=== PATIENT | female | born 1945 | race Caucasian/White ===

== ENCOUNTER 2016-08-10 16:37 | Inpatient (IN) ==
--- NOTE | 2016-08-10 18:37 | XRay Report ---
CLINICAL INFORMATION: Fall. Dyspnea. TECHNIQUE: Upright PA and lateral chest x-ray COMPARISON: Previous chest CT scan dated 12/10/[address] scan dated 08/06/2016 FINDINGS: Right-sided Port-A-Cath with its tip in the superior vena cava. Diffuse interstitial abnormality with prominent interstitial markings bilaterally. No parenchymal consolidation. No discrete mass. Heart size is mildly enlarged. Ivana and mediastinum are within normal limits. No pleural fluid. IMPRESSION: 1. Diffuse interstitial abnormality, probably chronic 2. No acute abnormality Interpreted and Authenticated by: Anant Dexter 08/10/16
[2016-08-10 19:07] LABS: ALT/SGPT 24 U/l (0-40); Albumin 3.5 gm/dL (3.2-5.2); Albumin/Globulin Ratio 0.9 (1.0-2.3); Alkaline Phosphatase 123 U/L (39-117); Blood Urea Nitrogen 39 mg/dl (8-23); Magnesium 2.1 mg/dL (1.6-2.5); proBNP 720.4 pg/ml (0-125)
[2016-08-10 19:23] LABS: Basophils # (Auto) 0 K/mcL (0.0-0.3); Basophils % (Auto) 0.1 % (0.0-2.0); Eosinophils # (Auto) 0.1 K/mcL (0.0-0.7); Eosinophils % (Auto) 0.7 % (0.0-7.0); Granulocytes % (Auto) 71.7 % (38.0-78.0); Lymphocytes # (Auto) 2.1 K/mcL (1.5-4.8); Lymphocytes % (Auto) 11.6 % (15.5-49.0); Mean Cell Volume 100.4 fL (80.0-100.0); Mean Corpuscular HGB Conc 32.8 g/dL (31.0-36.0); Mean Corpuscular Hemoglobin 32.9 pg (26.0-34.0); Monocytes # (Auto) 2.9 K/mcL (0.1-0.9); Monocytes % (Auto) 15.9 % (1.0-12.0); Platelet Count 191 K/mcL (140-440); RBC 3.75 M/mcL (4.00-5.20); Red Cell Distribution Width 15.6 % (11.5-14.5)
[2016-08-10] MEDS ORDERED: 0.9 % SODIUM CHLORIDE 1,000 ML IV ONE (19:55)
[2016-08-10] MEDS ORDERED: LEVOFLOXACIN 250 MG TABLET PO ONE (19:55)
[2016-08-10] MEDS ORDERED: LEVOFLOXACIN 500 MG TABLET ONE (20:07)
[2016-08-10] MEDS ORDERED: ONDANSETRON 4 MG/2 ML VIAL IV PRN ×2 (20:57→21:34)
[2016-08-10] MEDS ORDERED: NALOXONE HCL 0.4 MG/ML VIAL IV PRN ×2 (20:57→21:34)
[2016-08-10] MEDS ORDERED: HYDROcodone/APAP 5/325MG TABLET PO PRN ×2 (20:57→21:34)
[2016-08-10] MEDS ORDERED: 0.9 % SODIUM CHLORIDE 1,000 ML IV SCH (21:00)
--- NOTE | 2016-08-10 21:07 | Emergency Department Note ---
SOB HPI - General Chief Complaint: Shortness of Breath/Dyspnea Stated Complaint: Shortness of breath - tachycardia Time Seen by Provider: 08/10/16 17:35 Source: patient Mode of arrival: ambulatory Limitations: no limitations - History of Present Illness 71-year-old female patient of Dr. Olmedo's that was at [facility] for flushing her Port-A-Cath was sent over for tachycardia to the 120s. She has some dyspnea on exertion for the last 3-4 days along with some fatigue and pedal edema. She takes diuretics for the pedal edema and this does seem to be coming and going. No orthopnea palpitations or paroxysmal nocturnal dyspnea. She did have a fever up to 100F at home. Denies pain but she is hungry currently She has chronic kidney disease with a baseline creatinine about 1.9 currently on prednisone from Dr. Olmedo for this- baseline GFR 25. She is still making urine well without dysuria. Does endorse that she's been not drinking as much lately Her Hodgkin's lymphoma is in remission; also has non-Hodgkin's lymphoma though which is not in remission. She is status post stem cell transplant in 2012 - Related Data Home Medications Medication Instructions Recorded Confirmed Famotidine [Pepcid AC] 20 mg PO DAILY 08/10/16 08/10/16 Levothyroxine [Synthroid] 100 mcg PO DAILY 08/10/16 08/10/16 Premarin Unknown Strength 08/10/16 predniSONE [Prednisone] 5 mg PO DAILY 08/10/16 08/10/16 Allergies Allergy/AdvReac Type Severity Reaction Status Date / Time dapsone Allergy Unknown Other Verified 08/10/16 16:43 bleomycin AdvReac Unknown Rash Verified 08/10/16 16:43 methotrexate AdvReac Unknown Rash Verified 08/10/16 16:43 Penicillins AdvReac Unknown Rash Verified 08/10/16 16:43 Sulfa (Sulfonamide AdvReac Unknown Rash Verified 08/10/16 16:43 Antibiotics) trimethoprim AdvReac Unknown Rash Verified 08/10/16 16:43 Review of Systems All systems ED: reviewed and negative except as stated. Past Medical History - Past Medical History Attestation: Yes: The following information was validated with the patient. Medical history: Reports: cancer (both non-Hodgkin's lymphoma and Hodgkin's lymphoma), renal disease (stage IV), thyroid disease Surgical history ED: Reports: other (bone marrow transplant) - Social History smoking status: Never smoker Physical Exam No acute distress. Resting comfortably able to answer questions appropriate. Normocephalic atraumatic. Conjunctiva clear sclerae anicteric. No nasal discharge or congestion. Oropharynx with dry buccal mucosa. Neck is supple without lymphadenopathy or thyromegaly. Heart is regular rate and rhythm no murmurs appreciated. Lungs are clear to auscultation bilaterally without wheezes rales rhonchi or respiratory distress. Port-A-Cath in place right upper chest. +2 radial pulse. Abdomen soft nontender nondistended. No peritoneal signs or guarding. Trace pedal edema bilaterally. Alert and oriented no dysarthria or ataxia. - General Limitations: no limitations Course Vital Signs Temperature 98.6 F 08/10/16 16:38 Pulse Rate 116 H 08/10/16 16:38 Blood Pressure 132/86 08/10/16 16:38 Pulse Oximetry (%) 98 08/10/16 16:38 Temperature 98.6 F 08/10/16 16:38 Pulse Rate 52 L 08/10/16 20:21 Respiratory Rate 18 08/10/16 20:21 Blood Pressure 139/79 08/10/16 20:16 Pulse Oximetry (%) 87 L 08/10/16 20:21 Shortness of Breath/Dyspnea - Lab Data Lab results reviewed: Yes I reviewed the patient's lab results. Result diagrams: 08/10/16 18:15 08/10/16 18:15 Lab Results 08/10/16 08/10/16 08/10/16 Range/Units 18:15 18:15 18:15 WBC 18.1 H (4.5-11.0) K/mcL RBC 3.75 L (4.00-5.20) M/mcL Hgb 12.4 (12.0-15.0) g/dL Hct 37.7 (36.0-48.0) % MCV 100.4 H (80.0-100.0) fL MCH 32.9 (26.0-34.0) pg MCHC 32.8 (31.0-36.0) g/dL RDW 15.6 H (11.5-14.5) % Plt Count 191 (140-440) K/mcL MPV 13.0 H (7.4-10.4) fL Gran % 71.7 (38.0-78.0) % Lymph % (Auto) 11.6 L (15.5-49.0) % [place] % (Auto) 15.9 H (1.0-12.0) % Eos % (Auto) 0.7 (0.0-7.0) % Baso % (Auto) 0.1 (0.0-2.0) % Gran # 12.9 H (1.8-8.0) K/mcL Lymph # 2.1 (1.5-4.8) K/mcL [place] # 2.9 H (0.1-0.9) K/mcL Eos # 0.1 (0.0-0.7) K/mcL Baso # 0 (0.0-0.3) K/mcL D-Dimer < 0.27 (0.00-0.40) ug/ml VBG Lactic Acid (0.5-2.2) mmol/L Sodium 136 (133-145) mmol/L Potassium 3.8 (3.3-5.1) mmol/L Chloride 103 (96-108) mmol/L Carbon Dioxide 20 L (22-30) mmol/L Anion Gap 13.0 (8-16) BUN 39 H (8-23) mg/dl Creatinine 2.6 H (0.6-1.1) mg/dl GFR Calculation 18 Glucose 104 (70-105) mg/dL Calcium 9.6 (8.6-10.4) mg/dl Magnesium 2.1 (1.6-2.5) mg/dL Total Bilirubin 0.3 (0.0-1.0) mg/dL AST 25 (0-37) U/l ALT 24 (0-40) U/l Alkaline Phosphatase 123 H (39-117) U/L Troponin T (0-0.03) ng/ml NT-Pro-B Natriuret Pep 720.4 H (0-125) pg/ml Total Protein 7.3 (5.9-8.4) gm/dL Albumin 3.5 (3.2-5.2) gm/dL Globulin 3.8 H (2.2-3.7) gm/dL Albumin/Globulin Ratio 0.9 L (1.0-2.3) 05/15/17 05/15/17 Range/Units 18:15 18:15 WBC (4.5-11.0) K/mcL RBC (4.00-5.20) M/mcL Hgb (12.0-15.0) g/dL Hct (36.0-48.0) % MCV (80.0-100.0) fL MCH (26.0-34.0) pg MCHC (31.0-36.0) g/dL RDW (11.5-14.5) % Plt Count (140-440) K/mcL MPV (7.4-10.4) fL Gran % (38.0-78.0) % Lymph % (Auto) (15.5-49.0) % [place] % (Auto) (1.0-12.0) % Eos % (Auto) (0.0-7.0) % Baso % (Auto) (0.0-2.0) % Gran # (1.8-8.0) K/mcL Lymph # (1.5-4.8) K/mcL [place] # (0.1-0.9) K/mcL Eos # (0.0-0.7) K/mcL Baso # (0.0-0.3) K/mcL D-Dimer (0.00-0.40) ug/ml VBG Lactic Acid 0.9 (0.5-2.2) mmol/L Sodium (133-145) mmol/L Potassium (3.3-5.1) mmol/L Chloride (96-108) mmol/L Carbon Dioxide (22-30) mmol/L Anion Gap (8-16) BUN (8-23) mg/dl Creatinine (0.6-1.1) mg/dl GFR Calculation Glucose (70-105) mg/dL Calcium (8.6-10.4) mg/dl Magnesium (1.6-2.5) mg/dL Total Bilirubin (0.0-1.0) mg/dL AST (0-37) U/l ALT (0-40) U/l Alkaline Phosphatase (39-117) U/L Troponin T < 0.01 (0-0.03) ng/ml NT-Pro-B Natriuret Pep (0-125) pg/ml Total Protein (5.9-8.4) gm/dL Albumin (3.2-5.2) gm/dL Globulin (2.2-3.7) gm/dL Albumin/Globulin Ratio (1.0-2.3) evidence of UTI with small leukocytes, moderate blood and significant gravity 1.025 on urinalysis [id number] dipstick - Radiology Data Radiology results reviewed: Yes I reviewed the patient's radiology results. Chest x-ray shows likely chronic fibrosis but no acute findings. Port-A-Cath appears to be in good position - EKG Data EKG attestation: Yes I reviewed and interpreted this EKG. EKG results narrative: EKG shows a rate of 105. Low voltage and 2, 3 aVF otherwise normal EKG shows normal: Reports: sinus rhythm Disposition Clinical Impression: Dehydration [id number] kidney injury Qualifiers: Acute renal failure type: unspecified Chronic kidney disease stage: stage 4 ( severe) Qualified Code(s): N17.9 - Acute kidney failure, unspecified; N18.4 - Chronic kidney disease, stage 4 (severe) UTI (urinary tract infection) Qualifiers: Urinary tract infection type: acute cystitis Hematuria presence: with hematuria Qualified Code(s): N30.01 - Acute cystitis with hematuria Non Hodgkin's lymphoma Qualifiers: Non-Hodgkin lymphoma type: unspecified type Lymphoma site: unspecified region Qualified Code(s): C85.90 - Non-Hodgkin lymphoma, unspecified, unspecified site Summary: Initially worked patient up with laboratory chest x-ray urinalysis and EKG. Found to be dehydrated with a UTI and acute on chronic kidney injury. Unclear cardiac status with elevated BNP but normal troponin. D-dimer was likewise normal. I don't have comparison labs to make an evaluation about possible CHF but she does not appear to be in CHF at this time. Her story about pedal edema on diuretics is concerning for possible CHF- as is her risk factors for chemotherapy induced cardiomyopathy having been treated for lymphoma. Due to this I only gave her 1 L of normal saline and 1 dose of Levaquin 250mg We called Dr. Olmedo to discuss the patient- he did not want the patient to come to [place] and felt it was appropriate to admit to the hospitalist. I discussed the patient with Dr. Scott the hospitalist who agreed to accept the patient to telemetry bed. Transition orders are written- we will continue gentle IV fluids in light of above, monitor for continued need of antibiotics. Disposition: Xfer As Inpt ([facility] [place]) Condition: Fair Referrals: Andrey Wilcox MD [Primary Care Provider] - Fabien Olmedo MD [Physician] - Jason Villavicencio MD [Physician] -
[2016-08-10] MEDS ORDERED: ACETAMINOPHEN 325 MG TABLET PO PRN (21:34)
[2016-08-10] MEDS ORDERED: traZODone HCL 50 MG TABLET PO PRN (21:34)
[2016-08-10] MEDS ORDERED: ACETAMINOPHEN 1,000 MG/100 ML BOTTLE IV PRN (21:34)
[2016-08-10] MEDS ORDERED: PIPERACILLIN SODIUM/TAZOBACTAM 3.375 GM in DEXTROSE 5% IN WATER 50 ML IV SCH (21:34)
[2016-08-10] MEDS ORDERED: MAGNESIUM SULFATE 2 GM/50 ML BAG IV PRN (21:34)
[2016-08-10] MEDS ORDERED: POTASSIUM CHLORIDE 20 MEQ PACKET PO PRN (21:34)
[2016-08-10] MEDS ORDERED: VANCOMYCIN PER PHARMACY IV SCH (21:36)
[2016-08-10] MEDS: FAMOTIDINE 20 MG TABLET PO SCH (22:47)
[2016-08-10] MEDS: HEPARIN 5,000 UNIT/ML VIAL SQ SCH (22:47)
[2016-08-10] MEDS: DOCUSATE SODIUM 100 MG CAPSULE PO SCH (22:48)
[2016-08-10] MEDS: 0.9 % SODIUM CHLORIDE 1,000 ML IV SCH (22:48)
[2016-08-10] MEDS: 0.9 % SODIUM CHLORIDE 10 ML SYRINGE IV SCH (22:48)
[2016-08-10] MEDS: cefTRIAXone 2 GM in DEXTROSE 5% IN WATER 50 ML IV SCH (22:56)
[2016-08-10] MEDS ORDERED: VANCOMYCIN 500 MG VIAL ONE (23:48)
[2016-08-11] MEDS: VANCOMYCIN 1,000 MG in 0.9 % SODIUM CHLORIDE 250 ML IV SCH ×2 (00:18→15:51)
--- NOTE | 2016-08-11 01:17 | History and Physical Report ---
DATE OF ADMISSION: 08/10/2016 DATE OF ADMISSION: 08/10/2016 REASON FOR ADMISSION: Tachycardia, weakness. HISTORY OF CHIEF COMPLAINTS: The patient is a 71-year-old with known history of non-Hodgkin's lymphoma status post chemotherapy roughly 3 years ago. She is followed by Dr. Arthur at [facility]. She was getting her port flushed today at [facility] when she was found to have tachycardia around 120. She was directed to [facility] ER for further evaluation. Initial workup was essentially unremarkable except for tachycardia. The D-dimer was 0.37. Her creatinine was 2.6, which is higher than normal in light of acute kidney injury. Nephrology was consulted and recommended hospitalization for further evaluation. At the time of examination, the patient is alert and oriented. She is accompanied with her . She was able to provide answers to most of the questions. She denies recent changes in medications, sick contacts, diarrhea, dysuria, headache, or photophobia. She further denies chest pain, productive sputum, palpitation, weight loss or glandular swelling. She does endorse fatigue, lethargy over the last couple of days, but denies fever, drenching sweats. She also has underlying chronic kidney disease and has been managed by Dr. Olmedo. Her latest GFR was 25. She has been on prednisone over the last few months and currently being tapered down and has 2 more doses of 5 mg to go. PAST MEDICAL HISTORY: 1. Chronic kidney disease. 2. History of Hodgkin's and non-Hodgkin's lymphoma, managed by [facility]. 3. History of stem cell transplant 3 years ago with last chemo 3 years ago. 4. Hypothyroidism. 5. GERD. ALLERGIES KNOWN TO: 1. DAPSONE. 2. BLEOMYCIN. 3. PENICILLIN. 4. METHOTREXATE. 5. SULFA. 6. TRIMETHOPRIM. SOCIAL HISTORY: The patient lives with her in [place]. She is a FULL CODE STATUS. Denies smoking or alcoholism, substance use. Sees primary care physician, Andrey Wilcox MD. FAMILY HISTORY: None relevant to presenting symptom. PHYSICAL EXAMINATION: GENERAL: The patient is alert and oriented. BMI 25.3. Height 5 feet 3 inches. VITAL SIGNS: Blood pressure 132/86, respiratory rate 20, temperature 98.6, pulse 116, sats 98 percent on room air. HEENT: Pupils symmetric. Oral cavity is dry. No ear or nose discharge. Head is normocephalic and atraumatic. NECK: No lymphadenopathy. CHEST: S1, S2 regular rhythm. ESM grade 1. Diminished breath sounds at bases. ABDOMEN: Soft. LOWER EXTREMITIES: No cyanosis or clubbing. No joint swelling. SKIN: No suspicious lesions. PSYCHIATRIC: Alert and cooperative. No anxiety. NEURO: Nonfocal. LABS AND IMAGING: White count 18,000, hemoglobin 12.3, platelets 191, D-dimer less than 1.7, lactic acid 0.9, sodium 132, potassium 3.8, creatinine 2.6, BUN 39. Troponin negative. BNP 720. X-ray chest: Diffuse interstitial abnormality. EKG: Sinus tachycardia. ASSESSMENT AND PLAN: A 71-year-old with a history of Hodgkin's lymphoma admitted with weakness, leukocytosis and tachycardia. 1. Tachycardia with leukocytosis: High-risk blood-borne infection given the immunocompromised state, underlying renal failure and steroid use. Connelly cultures along with broad antibiotic coverage and rapid de-escalation based on results. Await procalcitonin. 2. Acute kidney injury: Nephrology consulted. Likely secondary to sepsis-mediated end-organ dysfunction. Continue crystalloids and monitor renal function. 3. Prior medical issues: Hypothyroidism, continue thyroxine. 4. History of peptic ulcer disease: Continue Pepcid. PLAN FOR TODAY: 1. Admit as inpatient in light of renal failure, likely infectious etiology with leukocytosis of 18,000. 2. Nephrology consult. 3. Connelly cultures. AA:percy Job ID: [id number] Doc ID: [id number] Jason Wilcox MD [facility]
[2016-08-11] MEDS: 0.9 % SODIUM CHLORIDE 10 ML SYRINGE IV SCH ×3 (05:06→21:42)
[2016-08-11] MEDS: 0.9 % SODIUM CHLORIDE 1,000 ML IV SCH ×3 (05:06→11:02)
[2016-08-11 07:39] LABS: ALT/SGPT 19 U/l (0-40); Albumin 2.7 gm/dL (3.2-5.2); Albumin/Globulin Ratio 0.8 (1.0-2.3); Alkaline Phosphatase 93 U/L (39-117); Bilirubin,Direct < 0.2 mg/dL (0.0-0.3); Blood Urea Nitrogen 29 mg/dl (8-23); Gamma Glutamyl Transpeptidase 164 U/L (5-36); Magnesium 1.8 mg/dL (1.6-2.5); Uric Acid 4.5 mg/dL (2.5-8.0)
--- NOTE | 2016-08-11 08:26 | Ultrasound Report ---
CLINICAL INFORMATION: Renal failure. Possible obstructive uropathy. TECHNIQUE: Grayscale and color flow spectral imaging COMPARISON: None. FINDINGS: Right kidney measures 9.1 x 4.4 x 5.5 cm. Left kidney measures 10.1 x 4.4 x 4.3 cm. No solid or cystic mass. Normal sinus and cortical echoes bilaterally. No calculi. No hydronephrosis. Prevoid bladder volume measures 142 mL. Patient was unable to void. No bladder calculus or mass. IMPRESSION: Negative renal ultrasound. Interpreted and Authenticated by: Anant Dexter 08/11/16
[2016-08-11 09:13] LABS: Band Neutrophils % 1 % (0-10); Eosinophils % (Manual) 2 % (0-7); Lymphocytes % 16 % (15-49); Macrocytosis 1+ (NONE SEEN); Monocytes % (Manual) 18 % (1-12); Myelocytes % 2 % (0-0); Platelet Estimate NORMAL (NORMAL); RBC Morphology ABNORM (NORMAL); Segmented Neutrophils % 59 % (38-78)
[2016-08-11 09:15] LABS: Mean Corpuscular HGB Conc 32.3 g/dL (31.0-36.0); Mean Corpuscular Hemoglobin 32.3 pg (26.0-34.0); Platelet Count 191 K/mcL (140-440); RBC 2.93 M/mcL (4.00-5.20); Red Cell Distribution Width 15.2 % (11.5-14.5)
[2016-08-11] MEDS: predniSONE 5 MG TABLET PO SCH (09:26)
[2016-08-11] MEDS: HEPARIN 5,000 UNIT/ML VIAL SQ SCH ×2 (09:26→20:06)
[2016-08-11] MEDS: DOCUSATE SODIUM 100 MG CAPSULE PO SCH ×2 (09:27→20:06)
[2016-08-11] MEDS: LEVOTHYROXINE 100 MCG TABLET PO SCH (10:16)
[2016-08-11] MEDS: cefTRIAXone 2 GM in DEXTROSE 5% IN WATER 50 ML IV SCH (10:16)
[2016-08-11] MEDS: CEFEPIME 1 GM in DEXTROSE 5% IN WATER 50 ML IV SCH (17:22)
[2016-08-11] MEDS: FAMOTIDINE 20 MG TABLET PO SCH (20:06)
[2016-08-11] MEDS ORDERED: SENNOSIDES/DOCUSATE SODIUM 1 TAB TABLET PO SCH (21:00)
[2016-08-11] MEDS ORDERED: FAMOTIDINE 20 MG TABLET PO SCH (21:00)
[2016-08-11] MEDS ORDERED: LEVOTHYROXINE 100 MCG TABLET PO SCH ×2 (21:00)
[2016-08-12] MEDS: 0.9 % SODIUM CHLORIDE 10 ML SYRINGE IV SCH ×3 (04:59→21:36)
[2016-08-12 06:06] LABS: ALT/SGPT 22 U/l (0-40); Albumin 3.1 gm/dL (3.2-5.2); Albumin/Globulin Ratio 0.9 (1.0-2.3); Alkaline Phosphatase 108 U/L (39-117); Bilirubin,Direct < 0.2 mg/dL (0.0-0.3); Blood Urea Nitrogen 24 mg/dl (8-23); Gamma Glutamyl Transpeptidase 188 U/L (5-36); Magnesium 1.8 mg/dL (1.6-2.5); Uric Acid 4.1 mg/dL (2.5-8.0)
--- NOTE | 2016-08-12 07:03 | XRay Report ---
CLINICAL INFORMATION: Interstitial lung disease TECHNIQUE: Upright AP portable chest x-ray COMPARISON: 08/10/2016 FINDINGS: No change in right-sided Port-A-Cath Interstitial markings remain prominent bilaterally. No significant interval change. No new focal pulmonary parenchymal infiltrate or mass. No evidence for congestive heart failure IMPRESSION: No interval change since 08/10/2016 Interpreted and Authenticated by: Anant Dexter 08/12/16
--- NOTE | 2016-08-12 07:17 | Echocardiogram Report ---
ECHOCARDIOGRAM: 2-D and M-mode echocardiography with cardiac Doppler and color flow imaging were performed with a CS [employer] Aplio MX. Indication is ''rule out blood clots.'' A diagnostic M-mode tracing of the LV could not be obtained. Overall size of the RA, RV, LV, and aortic root appeared normal as did LV wall thickness and systolic performance. Estimated ejection fraction is 60-65%. The LA appeared borderline enlarged. The aortic valve appeared trileaflet and normal. There was no evidence for aortic stenosis or aortic regurgitation by Doppler interrogation. The mitral and tricuspid valves appeared unremarkable. Doppler interrogation of LV inflow disclosed prolonged early diastolic deceleration time and ''a'' wave dominance indicating delayed LV relaxation. No more than trivial mitral regurgitation was noted. Pulmonary venous interrogation disclosed normal ''s'' wave dominance. The pulmonic valve was not visualized. Pulmonary artery acceleration time appeared normal. There was no evidence for pulmonic stenosis or pulmonic regurgitation. There was no evidence for tricuspid regurgitation. No intracardiac shunting was appreciated. There was no evidence of pericardial effusion. The IVC was of normal diameter and showed normal respiratory variation. Sinus rhythm, rate 92, was present. CONCLUSION:Borderline LA enlargement. No other abnormalities noted. (See accompanying M-mode and Doppler reports for quantitation.) ECHOCARDIOGRAPHY M-MODE CALCULATIONS: HT: 63'' WT: 143 BSA: 1.68 m2 NORMALS AORTA: AORTIC ROOT 3.5 2.0-3.7 cm LEFT ATRIUM 3.8 1.9-4.0 cm MITRAL VALVE: EXCURSION 1.8 1.9-2.7 cm EPSS 0.8 <0.5 cm LT VENTRICLE: LVID (ED) -- 3.5-5.7 cm LVID (ES) -- SEPTAL THICKNESS -- 0.6-1.1 cm SEPTAL EXCURSION -- 0.3-0.8 cm LVPW THICKNESS -- 0.6-1.1 cm LVPW EXCURSION -- 0.9-1.4 cm MINOR AXIS FS -- 25%-40% RT VENTRICLE: RVID (ED) -- 0.9-2.6 cm(up to 3cm if LLD) QUALITATIVE DOPPLER FLOW STUDIES MITRAL VALVE MR, probably trivial AORTIC VALVE -- TRICUSPID VALVE -- PULMONIC VALVE -- QUANTITATIVE DOPPLER FLOW STUDIES SAMPLE SITES VELOCITIES PEAK PRESSURE VALVE AREA and/or VALVE WINDOW (PEAK,M/SEC) DROP (GRADIENT) PRESSURE HALF-TIME MV (Diastole) 0.8 1.2 -- -- MV (Systole) -- -- -- AO (Diastole) -- -- -- AO (Systole) 1.5 -- -- TV (Systole) -- -- -- PV (Systole) 0.8 -- -- PV (Diastole) -- LWG:frida Job ID: [id number] Doc ID: [id number] Ruslan Gonzalez MD
[2016-08-12] MEDS: CEFEPIME 1 GM in DEXTROSE 5% IN WATER 50 ML IV SCH ×2 (07:29→21:33)
[2016-08-12] MEDS: LEVOTHYROXINE 100 MCG TABLET PO SCH (07:30)
[2016-08-12 07:49] LABS: Mean Corpuscular HGB Conc 33.1 g/dL (31.0-36.0); Mean Corpuscular Hemoglobin 33.4 pg (26.0-34.0); Platelet Count 195 K/mcL (140-440); RBC 3.36 M/mcL (4.00-5.20); Red Cell Distribution Width 15.2 % (11.5-14.5)
[2016-08-12 07:50] LABS: Band Neutrophils % 1 % (0-10); Eosinophils % (Manual) 3 % (0-7); Lymphocytes % 18 % (15-49); Macrocytosis 1+ (NONE SEEN); Monocytes % (Manual) 12 % (1-12); Myelocytes % 1 % (0-0); Platelet Estimate NORMAL (NORMAL); RBC Morphology ABNORM (NORMAL); Segmented Neutrophils % 65 % (38-78)
[2016-08-12] MEDS: DOCUSATE SODIUM 100 MG CAPSULE PO SCH ×2 (08:18→21:34)
[2016-08-12] MEDS: predniSONE 5 MG TABLET PO SCH (08:18)
[2016-08-12] MEDS: HEPARIN 5,000 UNIT/ML VIAL SQ SCH ×2 (08:21→21:34)
[2016-08-12] MEDS ORDERED: LEVOFLOXACIN 750 MG/150 ML BAG IV SCH (09:00)
--- NOTE | 2016-08-12 10:19 | Internal Med Progress Note ---
Medical - PN: Subj Patient information: Note initiated : 08/11/16 at 11:14 am Patient: Suyapa Pang 71 y/o F admitted on 08/10/16 for SOB, Tachycardia, Weakness, Leukocytosis. Chief Complaint: Interval history: 08/10- 71-year-old with history of NHL lymphoma and chronic kidney disease admitted with acute renal failure/tachycardia of unclear etiology. Extensive cultures taken broad antibiotic started in light of gram-negative lan in urine. Also cultures drawn from Port-A-Cath to rule out portal infection. Echocardiogram o evaluate right heart pressures as patient not amenable to CT angiogram in light of renal failure. Creatinine 2.5 baseline creatinine 2. white count 18,000 08/11- Patient doing well however feels fatigued. No overnight fever. Blood cultures negative so far. Urine cultures gram-negative lan. White count down from 18,000-17.4. continue cefepime and vancomycin and de-escalate based on culture sensitivities. Persistent tachycardia however improved to around 100. \ - Constitutional Vitals: Vital Signs Temp Pulse Resp BP Pulse Ox 98.2 F 103 H 18 139/73 90 08/12/16 06:57 08/12/16 06:57 08/12/16 06:57 08/12/16 06:57 08/12/16 07:38 Period Temp Pulse Resp BP Sys/Lopez Pulse Ox Last 24 Hr 97.4 F-99.4 F 86-105 16-20 110-153/53-73 89-96 Intake and Output 08/11/16 08/12/16 08/12/16 21:59 05:59 13:59 Intake Total 2019 50 / 50 Output Total 200 / 200 1650 / 1650 400 / 400 Balance 1820 / 1820 -1650 / -1650 -350 / -350 Weight 149 lb 8 oz Intake & Output: Intake & Output 08/11/16 08/12/16 08/12/16 21:59 05:59 13:59 Intake Total 2019 50 / 50 Output Total 200 / 200 1650 / 1650 400 / 400 Balance 1820 / 1820 -1650 / -1650 -350 / -350 Weight 149 lb 8 oz Intake: IV 1300 / 1300 50 / 50 Sodium Chloride 0.9% 1, 1000 / 1000 000 ml @ 150 mls/hr IV . Q6H40M [facility] Rx#:[id number] Maxipime 1 gm In Dextrose 50 / 50 50 / 50 5% in Water 50 ml @ 100 mls/hr IV Q12H [facility] Rx#: [id number] Vancomycin 1,000 mg In 250 / 250 Sodium Chloride 0.9% 250 ml @ 250 mls/hr IV Q24H [facility] Rx#:[id number] Oral 720 / 720 Output: Void Amount 200 / 200 1650 / 1650 400 / 400 Other: Meal Dinner Percent of Meal Consumed 100% Feeding Ability Assist with Tray Set Up # Bowel Movements 0 General appearance: cooperative, no acute distress Exam: alert oriented nonlabored breathing No anxiety Nondistended abdomen No rash or joint swelling Medical - PN: Obj Da - Labs CBC & Chem 7: 08/12/16 04:00 08/12/16 04:00 Labs: Abnormal Lab Results 08/12/16 08/12/16 08/11/16 04:00 04:00 08:12 WBC 19.1 H RBC 3.36 L Hgb 11.2 L Hct 33.9 L MCV 101.0 H RDW 15.2 H MPV 13.4 H Monocytes % (Manual) Myelocytes % 1 H RBC Morphology Abnorm A Macrocytosis 1+ A ESR 64 H Chloride 112 H Carbon Dioxide 17 L BUN 24 H Creatinine 1.7 H Phosphorus 2.4 L GGT 188 H Albumin 3.1 L Albumin/Globulin Ratio 0.9 L Triglycerides 169 H 08/11/16 08/11/16 05:44 05:44 WBC 17.7 H RBC 2.93 L Hgb 9.5 L Hct 29.3 L MCV RDW 15.2 H MPV 13.8 H Monocytes % (Manual) 18 H Myelocytes % 2 H RBC Morphology Abnorm A Macrocytosis 1+ A ESR Chloride 109 H Carbon Dioxide 16 L BUN 29 H Creatinine 2.0 H Phosphorus GGT 164 H Albumin 2.7 L Albumin/Globulin Ratio 0.8 L Triglycerides 151 H Meds: Medications Acetaminophen (Tylenol) 650 mg PO Q4-6HP PRN PRN Reason: PAIN/FEVER > 101 Last Admin: 08/11/16 11:05 Dose: 650 mg Acetaminophen/Hydrocodone Bitart ([place] 5/325mg) 1 tab PO Q4HP PRN PRN Reason: Pain Docusate Sodium (Colace) 100 mg PO BID [facility] Last Admin: 08/12/16 08:18 Dose: Not Given Famotidine (Pepcid) 20 mg PO HS [facility] Last Admin: 08/11/16 20:06 Dose: 20 mg Heparin Sodium (Porcine) (Heparin) 5,000 unit SQ Q12 [facility] Last Admin: 08/12/16 08:21 Dose: 5,000 unit Magnesium Sulfate (Magnesium Sulfate) 2 gm in 50 mls @ 50 mls/hr IV UD PRN PRN Reason: MG = or < 1.7 Acetaminophen (Ofirmev) 1,000 mg in 100 mls @ 200 mls/hr IV Q6HP PRN PRN Reason: PAIN/FEVER > 101 Vancomycin HCl 1,000 mg/ (Sodium Chloride) 250 mls @ 250 mls/hr IV Q24H [facility] Last Infusion: 08/11/16 17:10 Dose: Infused Cefepime HCl 1 gm/ Dextrose 50 mls @ 100 mls/hr IV Q12H [facility] Last Infusion: 08/12/16 08:00 Dose: Infused [facility]othy[facility]ine [facility]) [facility] Last Admin: 08/12/16 07:30 Dose: 100 mcg Naloxone HCl (Narcan) 0.1 mg IV Q2MIN PRN PRN Reason: Opiate Reversal Ondansetron HCl (Zofran) 4 mg IV Q4HP PRN PRN Reason: Nausea And Vomiting Potassium Chloride (Klor-Con) 40 meq PO DAILYP PRN PRN Reason: K+ < 3.5 Last Admin: 08/11/16 17:19 Dose: 40 meq Prednisone (Prednisone) 5 mg PO QAC [facility] Last Admin: 08/12/16 08:18 Dose: 5 mg Senna/Docusate Sodium (Senna Plus Tablet) 1 tab PO [facility] Last Admin: 08/11/16 20:06 Dose: Not Given Sodium Chloride (Saline Flush) 10 ml IV Q8 [facility] Last Admin: 08/12/16 04:59 Dose: Not Given Trazodone HCl (Desyrel) 50 mg PO HSP PRN PRN Reason: Insomnia Vancomycin HCl (Vancomycin Per Pharmacy) 1 order IV [facility] Medical - PN: A/P - Time Spent With Patient Total time spent is greater than 50% in coordination of care (as documented) at patient's floor/unit and/or counseling patient: 25 - 35 minutes (1) Leukocytosis (leucocytosis) Status: Acute Assessment and plan: * Leukocytosis- 18,000. Down to 17.4. unclear etiology. pancultures pending. Urine culture GNR. On cefepime and vancomycin. Cultures drawn from Port-A- Cath rule out Infection. patient on steroids however to lower dose to cause major leukocytosis * Acute renal failure-creatinine improved. from 2.6-2 Likely secondary to volume depletion. Continue crystalloids. patient has been on prednisone as per service station console operator and has 2 doses left. * Tachycardia- echocardiogram to rule out elevated right heart pressure. Patient not amenable to CT angiogram in light of creatinine. continue telemetry monitoring. * hypothyroidism on thyroxine * DVT prophylaxis on heparin Plan * Continue cultures and antibiotics. And de-escalate based on results * Monitor renal function. Continue crystalloids * Await echo findings * Possible discharge in 44-48 hours if clinically improves Current Visit: Yes Medical - PN: Qual - Stroke Symptom Onset Unknown: No - VTE Deep Vein Thrombosis/Pulmonary Embolism Present on Admission: No
--- NOTE | 2016-08-12 10:28 | Internal Med Progress Note ---
Medical - PN: Subj Patient information: Note initiated : 08/12/16 at 10:22 am Service Date, if different from initiated Date: [] Patient: Suyapa Pang 71 y/o F admitted on 08/10/16 for SOB, Tachycardia, Weakness, Leukocytosis. Chief Complaint: [] Interval history: 08/10- 71-year-old with history of NHL lymphoma and chronic kidney disease admitted with acute renal failure/tachycardia of unclear etiology. Extensive cultures taken broad antibiotic started in light of gram-negative lan in urine. Also cultures drawn from Port-A-Cath to rule out portal infection. Echocardiogram o evaluate right heart pressures as patient not amenable to CT angiogram in light of renal failure. Creatinine 2.5 baseline creatinine 2. white count 18,000 08/11- Patient doing well however feels fatigued. No overnight fever. Blood cultures negative so far. Urine cultures gram-negative lan. White count down from 18,000-17.4. continue cefepime and vancomycin and de-escalate based on culture sensitivities. Persistent tachycardia however improved to around 100. 08/12-worsening white count and 19,000. Patient feels fatigued and lethargic but no overnight fever chills or unstable hemodynamics. Tachycardia at 110. CT abdomen noncontrast. Doppler lower extremity rule out DVT. However echo no evidence of right heart elevated pressures. EF 60%. no hypoxia or dyspnea. Afebrile. No obvious source of infection. - Constitutional Vitals: Vital Signs Temp Pulse Resp BP Pulse Ox 98.2 F 103 H 18 139/73 90 08/12/16 06:57 08/12/16 06:57 08/12/16 06:57 08/12/16 06:57 08/12/16 07:38 Period Temp Pulse Resp BP Sys/Lopez Pulse Ox Last 24 Hr 97.4 F-99.4 F 86-105 16-20 110-153/53-73 89-96 Intake and Output 08/11/16 08/12/16 08/12/16 21:59 05:59 13:59 Intake Total 2019 50 / 50 Output Total 200 / 200 1650 / 1650 400 / 400 Balance 1820 / 1820 -1650 / -1650 -350 / -350 Weight 149 lb 8 oz Intake & Output: Intake & Output 08/11/16 08/12/16 08/12/16 21:59 05:59 13:59 Intake Total 2019 50 / 50 Output Total 200 / 200 1650 / 1650 400 / 400 Balance 1820 / 1820 -1650 / -1650 -350 / -350 Weight 149 lb 8 oz Intake: IV 1300 / 1300 50 / 50 Sodium Chloride 0.9% 1, 1000 / 1000 000 ml @ 150 mls/hr IV . Q6H40M [facility] Rx#:[id number] Maxipime 1 gm In Dextrose 50 / 50 50 / 50 5% in Water 50 ml @ 100 mls/hr IV Q12H [facility] Rx#: [id number] Vancomycin 1,000 mg In 250 / 250 Sodium Chloride 0.9% 250 ml @ 250 mls/hr IV Q24H [facility] Rx#:[id number] Oral 720 / 720 Output: Void Amount 200 / 200 1650 / 1650 400 / 400 Other: Meal Dinner Percent of Meal Consumed 100% Feeding Ability Assist with Tray Set Up # Bowel Movements 0 General appearance: cooperative Exam: fatigue and lethargic no rash Nondistended abdomen Minimal abdominal discomfort Medical - PN: Obj Da - Labs CBC & Chem 7: 08/12/16 04:00 08/12/16 04:00 Labs: Abnormal Lab Results 08/12/16 08/12/16 08/11/16 04:00 04:00 08:12 WBC 19.1 H RBC 3.36 L Hgb 11.2 L Hct 33.9 L MCV 101.0 H RDW 15.2 H MPV 13.4 H Monocytes % (Manual) Myelocytes % 1 H RBC Morphology Abnorm A Macrocytosis 1+ A ESR 64 H Chloride 112 H Carbon Dioxide 17 L BUN 24 H Creatinine 1.7 H Phosphorus 2.4 L GGT 188 H Albumin 3.1 L Albumin/Globulin Ratio 0.9 L Triglycerides 169 H 08/11/16 08/11/16 05:44 05:44 WBC 17.7 H RBC 2.93 L Hgb 9.5 L Hct 29.3 L MCV RDW 15.2 H MPV 13.8 H Monocytes % (Manual) 18 H Myelocytes % 2 H RBC Morphology Abnorm A Macrocytosis 1+ A ESR Chloride 109 H Carbon Dioxide 16 L BUN 29 H Creatinine 2.0 H Phosphorus GGT 164 H Albumin 2.7 L Albumin/Globulin Ratio 0.8 L Triglycerides 151 H Meds: Medications Acetaminophen (Tylenol) 650 mg PO Q4-6HP PRN PRN Reason: PAIN/FEVER > 101 Last Admin: 08/11/16 11:05 Dose: 650 mg Acetaminophen/Hydrocodone Bitart (Cement 5/325mg) 1 tab PO Q4HP PRN PRN Reason: Pain Docusate Sodium (Colace) 100 mg PO BID [facility] Last Admin: 08/12/16 08:18 Dose: Not Given Famotidine (Pepcid) 20 mg PO [facility] Last Admin: 08/11/16 20:06 Dose: 20 mg Heparin Sodium (Porcine) (Heparin) 5,000 unit SQ Q12 [facility] Last Admin: 08/12/16 08:21 Dose: 5,000 unit Magnesium Sulfate (Magnesium Sulfate) 2 gm in 50 mls @ 50 mls/hr IV UD PRN PRN Reason: MG = or < 1.7 Acetaminophen (Ofirmev) 1,000 mg in 100 mls @ 200 mls/hr IV Q6HP PRN PRN Reason: PAIN/FEVER > 101 Vancomycin HCl 1,000 mg/ (Sodium Chloride) 250 mls @ 250 mls/hr IV Q24H [facility] Last Infusion: 08/11/16 17:10 Dose: Infused Cefepime HCl 1 gm/ Dextrose 50 mls @ 100 mls/hr IV Q12H [facility] Last Infusion: 08/12/16 08:00 Dose: Infused Levothyroxine [facility]throid) [facility] Last Admin: 08/12/16 07:30 Dose: 100 mcg Naloxone HCl (Narcan) 0.1 mg IV Q2MIN PRN PRN Reason: Opiate Reversal Ondansetron HCl (Zofran) 4 mg IV Q4HP PRN PRN Reason: Nausea And Vomiting Potassium Chloride (Klor-Con) 40 meq PO DAILYP PRN PRN Reason: K+ < 3.5 Last Admin: 08/11/16 17:19 Dose: 40 meq Prednisone (Pred[facility]one) [facility] Last Admin: 08/12/16 08:18 Dose: 5 mg Senna/Docusate Sodium (Senna Plus Tablet) 1 tab PO [facility] Last Admin: 08/11/16 20:06 Dose: Not Given Sodium Chloride (Saline Flush) 10 ml IV Q8 [facility] Last Admin: 08/12/16 04:59 Dose: Not Given Trazodone HCl (Desyrel) 50 mg PO [facility] PRN PRN Reason: Insomnia Vancomycin HCl (Vancomycin Per Pharmacy) 1 order IV [facility] [place] Medical - PN: A/P - Time Spent With Patient Total time spent is greater than 50% in coordination of care (as documented) at patient's floor/unit and/or counseling patient: 15 - 24 minutes (1) Leukocytosis (leucocytosis) Status: Acute Assessment and plan: * Leukocytosis- Worsening and 19,000 Urine culture pansensitive Escherichia coli. No other source identified so far. blood cultures from Port-A-Cath negative. Continue cefepime and vancomycin. * Acute renal failure-creatinine improved. from 2.6-1.7 on crystalloids. Likely secondary to volume depletion. * Tachycardia- echocardiogram to rule out elevated right heart pressure. Patient not amenable to CT angiogram in light of creatinine. continue telemetry monitoring. * hypothyroidism on thyroxine * abdominal discomfort/constipation-patient refusing laxatives * DVT prophylaxis on heparin Plan * Continue cultures and antibiotics. * CT abdomen Noncontrast in light of abdominal discomfort * Doppler lower extremity ultrasound to rule out DVT * DC steroids in 24 hour * Monitor renal function. Continue crystalloids * discharge on hold until leukocytosis improved Current Visit: Yes Medical - PN: Qual - Stroke Symptom Onset Unknown: No - VTE Deep Vein Thrombosis/Pulmonary Embolism Present on Admission: No
[2016-08-12 13:14] LABS: Appearance,Urine HAZY; Bacteria,Urine 0 /hpf (0); Bilirubin,Urine NEG (NEG); Color,Urine YELLOW; Glucose,Urine (UA) 50 mg/dL (NEG); Leukocyte Esterase,Urine NEG /uL (NEG); Mucus,Urine FEW /hpf (0); Nitrate,Urine NEG (NEG); Protein,Urine NEG (NEG); Specific Gravity,Urine 1.012 (1.000-1.035); Urine Amorphous Crystals FEW /hpf (0); Urine Blood 0.03 mg/dL (<0.03); Urine Hyaline Cast 2 /lpf (0-2); Urine RBC 0 /hpf (0-1); Urine Squamous Epithelial Cell 1 /hpf (0-4); Urine WBC 1 /hpf (0-4); Urobilinogen,Urine NEG (NEG)
--- NOTE | 2016-08-12 13:28 | Ultrasound Report ---
CLINICAL INFORMATION: Bilateral lower extremity pain and swelling TECHNIQUE: Grayscale and color flow spectral imaging COMPARISON: None. FINDINGS: Negative examination for deep venous thrombosis. Normal common femoral veins, superficial femoral veins, popliteal veins bilaterally. Calf veins are negative. Greater and lesser saphenous veins are negative IMPRESSION: Negative bilateral lower extremity deep venous ultrasound Interpreted and Authenticated by: Anant Dexter 08/12/16
[2016-08-12] MEDS ORDERED: HYDROcodone/APAP 5/325MG TABLET PO PRN (14:32)
[2016-08-12] MEDS ORDERED: MAGNESIUM SULFATE 2 GM/50 ML BAG IV PRN (14:32)
[2016-08-12] MEDS ORDERED: traZODone HCL 50 MG TABLET PO PRN (14:32)
[2016-08-12] MEDS ORDERED: VANCOMYCIN PER PHARMACY IV SCH (14:32)
[2016-08-12] MEDS ORDERED: ONDANSETRON 4 MG/2 ML VIAL IV PRN (14:32)
[2016-08-12] MEDS ORDERED: ACETAMINOPHEN 1,000 MG/100 ML BOTTLE IV PRN (14:32)
[2016-08-12] MEDS ORDERED: POTASSIUM CHLORIDE 20 MEQ PACKET PO PRN (14:32)
[2016-08-12] MEDS ORDERED: NALOXONE HCL 0.4 MG/ML VIAL IV PRN (14:32)
[2016-08-12] MEDS ORDERED: ACETAMINOPHEN 325 MG TABLET PO PRN (14:32)
--- NOTE | 2016-08-12 20:18 | Cat Scan Report ---
CLINICAL INFORMATION: Elevated white blood cell count. Possible abscess. Previous history of lymphoma. COMPARISON: PET/CT scan dated 08/06/2016 TECHNIQUE: Axial images were obtained through the abdomen and pelvis. Sagittally and coronally reformatted images. FINDINGS: Lung bases are suboptimally evaluated due to respiratory motion. No focal consolidation. There are very small effusions. Liver is negative to limits of noncontrast enhanced examination. No focal intrahepatic abnormality. There are calcified gallstones. No dilated bile ducts. There are several small round soft tissue abnormalities in the left upper quadrant which probably represents splenule. 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 Negative adrenal glands. Pancreas is negative. No pancreatic mass. No peripancreatic abnormality. Negative kidneys. No solid or cystic abnormality. No hydronephrosis. No diverticulitis. No significant diverticulosis. No free pelvic fluid. No intra-abdominal abscess. No pneumoperitoneum. No biliary or portal venous gas. There is a pessary within the vagina. This is in a vertical orientation. There is a supra umbilical abdominal wall hernia. Hernia defect measures 3.5 x 2.8 cm. This does not contain bowel. There is mesenteric fat. There are small para-aortic and left iliac chain retroperitoneal lymph nodes. Findings are unchanged since 08/06/2016. Some of these nodes are hypermetabolic consistent with recurrent or residual lymphoma.. IMPRESSION: 1. No intra-abdominal abscess. 2. Cholelithiasis. 3. Mild aortic retroperitoneal lymphadenopathy. No significant interval change since 08/06/2016 Interpreted and Authenticated by: Anant Dexter 08/12/16
[2016-08-12] MEDS ORDERED: SENNOSIDES/DOCUSATE SODIUM 1 TAB TABLET PO SCH (21:00)
[2016-08-12] MEDS ORDERED: FAMOTIDINE 20 MG TABLET PO SCH (21:00)
[2016-08-13] MEDS: 0.9 % SODIUM CHLORIDE 10 ML SYRINGE IV SCH ×2 (03:55→05:44)
[2016-08-13 06:18] LABS: Blood Urea Nitrogen 22 mg/dl (8-23); Uric Acid 4.3 mg/dL (2.5-8.0)
[2016-08-13 06:19] LABS: ALT/SGPT 18 U/l (0-40); Albumin/Globulin Ratio 0.8 (1.0-2.3); Alkaline Phosphatase 99 U/L (39-117); Bilirubin,Direct < 0.2 mg/dL (0.0-0.3); Gamma Glutamyl Transpeptidase 173 U/L (5-36); Magnesium 1.8 mg/dL (1.6-2.5)
[2016-08-13] MEDS ORDERED: LEVOTHYROXINE 100 MCG TABLET PO SCH (07:30)
[2016-08-13 07:39] LABS: Mean Cell Volume 101.2 fL (80.0-100.0); Mean Corpuscular HGB Conc 32.6 g/dL (31.0-36.0); Platelet Count 200 K/mcL (140-440); RBC 3.32 M/mcL (4.00-5.20); Red Cell Distribution Width 15.5 % (11.5-14.5)
[2016-08-13 07:41] LABS: Band Neutrophils % 1 % (0-10); Eosinophils % (Manual) 1 % (0-7); Lymphocytes % 19 % (15-49); Macrocytosis 1+ (NONE SEEN); Monocytes % (Manual) 20 % (1-12); Platelet Estimate NORMAL (NORMAL); RBC Morphology ABNORM (NORMAL); Segmented Neutrophils % 59 % (38-78)
[2016-08-13] MEDS: CEFEPIME 1 GM in DEXTROSE 5% IN WATER 50 ML IV SCH (09:30)
[2016-08-13] MEDS: HEPARIN 5,000 UNIT/ML VIAL SQ SCH (09:31)
[2016-08-13] MEDS: DOCUSATE SODIUM 100 MG CAPSULE PO SCH (09:36)
[2016-08-13] MEDS ORDERED: VANCOMYCIN 1,000 MG in 0.9 % SODIUM CHLORIDE 250 ML IV SCH (10:00)
--- NOTE | 2016-08-13 10:35 | Discharge Summary ---
Medical - DS: Prov Patient information: Note initiated : 08/13/16 at 10:27 am Service Date, if different from initiated Date: [] Patient: Suyapa Pang 71 y/o F admitted on 08/10/16 for SOB, Tachycardia, Weakness, Leukocytosis. Chief Complaint: [] Date of admission: 08/10/16 21:28 Discharge date: 08/13/16 Primary care physician: [f_Reg Prim Care Provider] Medical - DS: Meds - Discharge Medications Active and Home Medications: Home Medications Famotidine [Pepcid AC] 20 mg PO DAILY 08/10/16 [History Confirmed 08/12/16 Last Taken 08/09/16] Levothyroxine [Synthroid] 100 mcg PO DAILY 08/10/16 [History Confirmed 08/12/16 Last Taken 08/12/16] Estrogens, Conjugated [Premarin] 0.625 mg VG TUTH 08/12/16 [History Confirmed Last Taken 08/06/16] Medical - DS: Hosp Hospital course: DISCHARGE DIAGNOSIS * Leukocytosis- unchanged at 19,000. No evidence of infection including fever. unremarkable pro calcitonin. Negative renal ultrasound/abdominal CT/chest imaging/blood cultures, UA no evidence of pyuria, Escherichia coli on culture. DC antibiotics. Follow-up PCP in 3-5 days with repeat CBC. If persistent elevation patient will require marrow biopsy/oncology follow-up in light of giant platelets noticed on manual differential. * Acute renal failure-creatinine improved. from 2.6-1.8. now at baseline * Tachycardia secondary to volume depletion-resolved with crystalloids . Negative Doppler lower extremity ultrasound. not amenable to CT angiogram. Negative echo with no evidence of right heart pressure overload/pulmonary hypertension to suggest CTPAH. * Hypothyroidism on thyroxine * chronic constipation- recommend stool softeners [facility] Mr. Pang is a 71 year old female admitted with tachycardia/JD. 08/10- 71-year-old with history of NHL lymphoma and chronic kidney disease admitted with acute renal failure/tachycardia of unclear etiology. Extensive cultures taken broad antibiotic started in light of gram-negative lan in urine. Also cultures drawn from Port-A-Cath to rule out portal infection. Echocardiogram o evaluate right heart pressures as patient not amenable to CT angiogram in light of renal failure. Creatinine 2.5 baseline creatinine 2. white count 18,000 08/11- Patient doing well however feels fatigued. No overnight fever. Blood cultures negative so far. Urine cultures gram-negative lan. White count down from 18,000-17.4. continue cefepime and vancomycin and de-escalate based on culture sensitivities. Persistent tachycardia however improved to around 100. 08/12-worsening white count and 19,000. Patient feels fatigued and lethargic but no overnight fever chills or unstable hemodynamics. Tachycardia at 110. CT abdomen noncontrast. Doppler lower extremity rule out DVT. However echo no evidence of right heart elevated pressures. EF 60%. no hypoxia or dyspnea. Afebrile. No obvious source of infection. 08/13- Extensive workup for leukocytosis including CT abdomen and pelvis unremarkable except for gallstones, negative chest imaging, negative serial blood cultures, negative renal ultrasound, leukocytosis unchanged at 18.7. Negative Doppler ultrasound. no evidence of elevated right heart pressures/ pulmonary hypertension on echo. discharging with recommendations to follow up with primary care physician and repeat CBC in 3-5 days. If persistent elevation along with persistent giant platelets patient would benefit from marrow biopsy/follow up with Dr. Ocampo at [facility]. detailed discharge instructions as below Discharge diagnosis: . - Time Spent with Patient Total time spent providing and/or coordinating discharge services: Greater than 30 minutes Medical - DS: Exam - Constitutional Vitals: Vital Signs Temp Pulse Pulse Resp BP Pulse Ox 08/13/16 07:44 95 H 95 08/13/16 07:43 98.0 F 96 H 14 133/88 91 08/13/16 03:40 98.2 F 85 20 118/70 92 08/12/16 23:44 97.7 F 80 20 127/71 92 08/12/16 20:00 98.0 F 94 H 22 126/80 94 08/12/16 15:30 98.1 F 105 H 18 133/83 93 08/12/16 11:48 98.8 F 97 H 18 120/77 90 Intake and Output 08/12/16 08/13/16 08/13/16 21:59 05:59 13:59 Intake Total 860 / 860 100 / 100 Output Total 550 / 550 Balance 310 / 310 100 / 100 Intake: IV 50 / 50 Maxipime 1 gm In Dextrose 50 / 50 5% in Water 50 ml @ 100 mls/hr IV Q12H [facility] Rx#: [id number] Oral 860 / 860 50 / 50 Output: Void Amount 550 / 550 Other: Meal Dinner Percent of Meal Consumed 75% # Voids 2 2 Weight 143 lb 14.4 oz Medical - DS: Data Labs on day of discharge: Labs from last 24 hours 08/13/16 08/13/16 08/12/16 03:50 03:50 14:09 WBC 18.7 H RBC 3.32 L Hgb 11.0 L Hct 33.6 L MCV 101.2 H MCH 33.0 MCHC 32.6 RDW 15.5 H Plt Count 200 MPV 13.0 H Total Counted 100 Seg Neutrophils % 59 Band Neutrophils % 1 Lymphocytes % 19 Monocytes % (Manual) 20 H Eosinophils % (Manual) 1 Platelet Estimate Normal RBC Morphology Abnorm A Macrocytosis 1+ A Sodium 142 Potassium 3.6 Chloride 109 H Carbon Dioxide 19 L Anion Gap 14.0 BUN 22 Creatinine 1.8 H GFR Calculation 28 Glucose 79 Uric Acid 4.3 Calcium 9.5 Phosphorus 3.0 Magnesium 1.8 Total Bilirubin 0.3 Direct Bilirubin < 0.2 GGT 173 H AST 20 ALT 18 Alkaline Phosphatase 99 Lactate Dehydrogenase 196 Total Protein 6.6 Albumin 3.0 L Globulin 3.6 Albumin/Globulin Ratio 0.8 L Triglycerides 143 Urine Color Urine Appearance Urine pH Ur Specific Todd Urine Protein Urine Glucose (UA) Urine Ketones Urine Occult Blood Urine Nitrate Urine Bilirubin Urine Urobilinogen Ur Leukocyte Esterase Urine RBC Urine WBC Ur Squamous Epith Cells Amorphous Crystals Urine Bacteria Hyaline Casts Urine Mucus Ur Culture Indicated? Vancomycin Trough 17.2 H 08/12/16 12:09 WBC RBC Hgb Hct MCV MCH MCHC RDW Plt Count MPV Total Counted Seg Neutrophils % Band Neutrophils % Lymphocytes % Monocytes % (Manual) Eosinophils % (Manual) Platelet Estimate RBC Morphology Macrocytosis Sodium Potassium Chloride Carbon Dioxide Anion Gap BUN Creatinine GFR Calculation Glucose Uric Acid Calcium Phosphorus Magnesium Total Bilirubin Direct Bilirubin GGT AST ALT Alkaline Phosphatase Lactate Dehydrogenase Total Protein Albumin Globulin Albumin/Globulin Ratio Triglycerides Urine Color Yellow Urine Appearance Hazy Urine pH 5.0 Ur Specific Todd 1.012 Urine Protein Neg Urine Glucose (UA) 50 A Urine Ketones Neg Urine Occult Blood 0.03 A Urine Nitrate Neg Urine Bilirubin Neg Urine Urobilinogen Neg Ur Leukocyte Esterase Neg Urine RBC 0 Urine WBC 1 Ur Squamous Epith Cells 1 Amorphous Crystals Few A Urine Bacteria 0 Hyaline Casts 2 Urine Mucus Few Ur Culture Indicated? No Vancomycin Trough Preliminary micro results at discharge 08/11/16 05:44 Blood Culture - Preliminary Blood 08/10/16 22:11 Blood Culture - Preliminary Blood Medical - DS: A/P - Patient/Caregiver Discharge Instructions Activity: increase activity as tolerated Diet: Regular Diet Additional Instructions: Follow-up PCP in 3-5 days for evaluation of leukocytosis and repeat CBC. if persistent leukocytosis patient should follow up with Dr. Ocampo oncology at [place] I recommend SNF physician to check INR, CBC BMP UA as a posthospital follow-up and Chest x-ray in 1 week. Continue aggressive bowel regimen to prevent constipation Continue fall precautions Return to ER if fever chills shortness of breath, diarrhea, rash/cough Continue diet and activity as advised Discussed importance of medication adherence Please review medication list with patient prior to discharge Please schedule follow-up with PCP/Providers prior to discharge and provide printouts Portions of this chart may have been created with [employer] voice recognition software. Occasional wrong-word or ?sound-like? substitutions may have occurred due to the inherent limitations of voice recognition software. Please read the chart carefully and recognize, using context, where the substitutions have occurred. CC- PCP - Problem Maintenance (1) Leukocytosis (leucocytosis) Status: Acute Qualifiers: Leukocytosis type: other Qualified Code(s): D72.828 - Other elevated white blood cell count - Follow up Plan Follow up with: Jason Villavicencio MD [Physician] - Fabien Olmedo MD [Physician] - Andrey Wilcox MD [Primary Care Provider] - Disposition: Home, Self-Care Prognosis: Fair Rehab Potential: Fair I certify that the patient requires SNF services: No Overall status at discharge: patient is progressing back to baseline Medical - DS: Qual - VTE Deep Vein Thrombosis/Pulmonary Embolism Present on Admission: No
== END 2016-08-13 13:30 | disposition home or self-care (01) | DRG 815 ==
LOC: ED 16:37 → ICU 21:25 → MEDSUR 08-12 15:28
PROVIDERS: ADMIT Internal Medicine; ATTEND Internal Medicine